=== PATIENT | female | born 1965 | race Caucasian/White ===

== ENCOUNTER 2022-04-17 18:48 | Emergency (ER) | payer OTHER ==
[2022-04-17 19:17] VITALS: BP 155/85; PULSE 76; O2SAT 98
--- NOTE | 2022-04-17 19:35 | ERPHSYRPT ---
- History of Present Illness Source: patient Exam Limitations: no limitations Patient Subjective Stated Complaint: C/O "infected left hip and left ear with my ear bleeding". Patient states that she had surgery to her left hip area around 7 weeks ago for a fractured femur head and that it is infected. States bleeding left ear and dizziness started a few days ago. Triage Nursing Assessment: Ambulated back to ED without difficulties. She is alert and oriented and answering questions appropriately. Left hip is hot to touch, hard induration noted. Incision is closed/well-approximated. Small amount of blood noted coming from left ear. Some swelling noted to neck distally to ear. Physician History: 56 yo from treatment center in [facility] for narcotic misuse presents w L otalgia and bleeding from L ear x2 days. Pt denies trauma and fever. States that she has some dizziness due to the otalgia. Pt also had a L hip fx repaired [address] [facility] s/p fall. She has been having some erythema and edema around the incision. Pt had a Rocephin injection 2 days ago and was placed on Bactrim. States that the edema and erythema are improving. Fever and discharge are denied at this time. Timing/Duration: other (2 days) Severity: mild Modifying Factors: Improves With: nothing Associated Symptoms: No nausea, No vomiting, No abdominal pain, No shortness of breath, No heartburn, No diaphoresis, No cough, No chills, No chest pain, No fever, No headaches, No loss of appetite, No malaise, No rash, No syncope, No seizure, No weakness Allergies/Adverse Reactions: No Known Drug Allergies Allergy (Verified 04/17/22 18:58) Hx Tetanus, Diphtheria Vaccination/Date Given: Yes Hx Influenza Vaccination/Date Given: Yes Hx Pneumococcal Vaccination/Date Given: Yes Immunizations Up to Date: Yes Travel Risk - International Travel Have you traveled outside of the country in past 3 weeks: No - Coronavirus Screening Are you exhibiting any of the following symptoms?: No Close contact with a COVID-19 positive Pt in past 14-21 Days: No - Vaccine Status Have you recieved a Covid-19 vaccination: Yes 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 - Vaccination Dates Date of 2cond Vaccination (if applicable): 2020 - Review of Systems Constitutional: No Symptoms Eyes: No Symptoms Ears, Nose, & Throat: No Symptoms Respiratory: No Symptoms Cardiac: No Symptoms Abdominal/Gastrointestinal: No Symptoms Genitourinary Symptoms: No Symptoms Musculoskeletal: No Symptoms Neurological: No Symptoms Psychological: No Symptoms Endocrine: No Symptoms Hematologic/Lymphatic: No Symptoms Immunological/Allergic: Pollen Allergy - Past Medical History Pertinent Past Medical History: Yes Cardiac History: Hypertension Musculoskeletal History: Fractures - Past Surgical History Past Surgical History: Yes Musculoskeletal: Orthopedic Surgery, Other Female Surgical History: Mastectomy Other Surgical History: Knee, Left femur fracture repair - Social History Smoking Status: Former smoker Exposure to second hand smoke: No Drug Use: none Patient Lives Alone: No Significant Family History: no pertinent family hx - Nursing Vital Signs Nursing Vital Signs: Initial Vital Signs Temperature 97.9 F 04/17/22 19:03 Pulse Rate 76 04/17/22 19:03 Respiratory Rate 17 04/17/22 19:03 Blood Pressure 155/85 04/17/22 19:03 O2 Sat by Pulse Oximetry 98 04/17/22 19:03 Pain Scale Pain Intensity 8 Hypertensive - Physical Exam General Appearance: no apparent distress Eye Exam: PERRL/EOMI Ears, Nose, Throat Exam: other (L otic canal w dried blood/TM intact and clear) Neck Exam: normal inspection, non-tender, supple, full range of motion, No meningismus, No mass, No Brudzinski, No Kernig's Respiratory Exam: normal breath sounds, lungs clear, airway intact Cardiovascular Exam: regular rate/rhythm, normal heart sounds, normal peripheral pulses, murmur (2/6 CAS) Gastrointestinal/Abdomen Exam: soft, normal bowel sounds, No tenderness Back Exam: normal inspection, normal range of motion, No CVA tenderness Extremity Exam: other (L hip incision/No dehiscence/mild erythema/Very mild edema around incision/No drainage) Neurologic Exam: alert, oriented x 3, cooperative, 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, normal mood/affect, nml cerebellar function, nml station & gait, sensation nml, No motor deficits, No sensory deficit Skin Exam: normal color, warm, dry Lymphatic Exam: No adenopathy SpO2 Interpretation: normal SpO2: 98 O2 Delivery: Room Air - Course Nursing assessment & vital signs reviewed: Yes Ordered Tests: Medication Summary Discontinued Medications Generic Name Dose Route Start Last Admin Trade Name Freq PRN Reason Stop Dose Admin Ceftriaxone Sodium 1,000 mg 04/17/22 19:39 04/17/22 19:43 Ceftriaxone Sodium 1000 Mg Inj Vial IM 04/17/22 19:40 1,000 mg STAT ONE Administration Ceftriaxone Sodium Confirm 04/17/22 19:41 Ceftriaxone Sodium 1000 Mg Inj Vial Administered 04/17/22 19:42 Dose 1,000 mg .ROUTE .STK-MED ONE - Progress Progress: improved Progress Note: 04/17/22 19:40 1gm IM Rocephin Counseled pt/family regarding: diagnosis, need for follow-up - Departure Departure Disposition: Home Clinical Impression: Trauma of ear canal, Alteration in skin integrity related to surgical incision Condition: Stable Critical Care Time: No Referrals: DOCTOR,NO FAMILY [Primary Care Provider] - Follow up/PCP as directed Instructions: Surgical Wound (DC) Additional Instructions: Floxin otic-10 drops left ear twice a day for 10 days Do not insert anything into ear Follow up w your family MD Continue with Bactrim twice a day Follow up with your surgeon in 1-2 days Return to ER as needed Prescriptions: Ofloxacin Otic 5 ml [Floxin Otic 5 ML] 10 drops OT BID 10 Days #5 ml
[2022-04-17] MEDS ORDERED: Rocephin 1000 MG INJ IM ONE (19:39)
[2022-04-17] MEDS ORDERED: Rocephin 1000 MG INJ ONE (19:41)
== END 2022-04-17 19:53 | disposition home or self-care (01) ==
LOC: ED 18:48
DX: S09.91XA Unspecified injury of ear, initial encounter (principal); T81.89XA Other complications of procedures, not elsewhere classified, initial encounter; R23.8 Other skin changes; H92.22 Otorrhagia, left ear; H92.02 Otalgia, left ear; I10 Essential (primary) hypertension
CPT/HCPCS: 96372; 99282; J0696

== ENCOUNTER 2022-04-24 13:27 | Emergency (ER) | payer OTHER ==
[2022-04-24 14:48] VITALS: BP 106/51; PULSE 60; O2SAT 96
--- NOTE | 2022-04-24 14:48 | ERPHSYRPT ---
- History of Present Illness Source: patient Exam Limitations: no limitations Patient Subjective Stated Complaint: Abscess to right elbow Triage Nursing Assessment: Patient ambulated back to ED and transferred self to bed. Patient A+O X 3. Patient's skin pink, warm and dry. Patient complains of right elbow pain for 3 days. Patient states she has a raised area to right elbow that has been there for 8 weeks, but she climbed a tree and scraped area on wood. Right elbow now is red, warm and swollen. Patient complains of pain 04/27. Patient states she has resistance to several atb. Physician History: 56 yo wf cc of R olecranon edema/erythema/pain after sliding down tree on 04/21/22 in which she knocked off a scab from previous scaffold fall 8-9 wks ago where she fractured her superior femur. Pt is on Bactrim now for possible incisional infection. Fever is denied. Occurred: other (04/21/22) Method of Injury: fell (Slid down tree) Quality: constant Severity of Pain-Max: moderate Severity of Pain-Current: moderate Extremities Pain Location: elbow: right Modifying Factors: Improves With: movement Associated Symptoms: none Allergies/Adverse Reactions: No Known Drug Allergies Allergy (Verified 04/24/22 13:54) Home Medications: No Reportable Medications [No Reported Medications] 04/24/22 [History] Hx Tetanus, Diphtheria Vaccination/Date Given: Yes Hx Influenza Vaccination/Date Given: Yes Hx Pneumococcal Vaccination/Date Given: Yes Immunizations Up to Date: Yes Travel Risk - International Travel Have you traveled outside of the country in past 3 weeks: No - Coronavirus Screening Are you exhibiting any of the following symptoms?: No Close contact with a COVID-19 positive Pt in past 14-21 Days: No - Vaccine Status Have you recieved a Covid-19 vaccination: Yes 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 - Vaccination Dates Date of 2cond Vaccination (if applicable): 2020 - Review of Systems Constitutional: No Symptoms Eyes: No Symptoms Ears, Nose, & Throat: No Symptoms Respiratory: No Symptoms Cardiac: No Symptoms Abdominal/Gastrointestinal: No Symptoms Genitourinary Symptoms: No Symptoms Musculoskeletal: No Symptoms, Arthralgias, Fall Skin: No Symptoms Neurological: No Symptoms Psychological: No Symptoms Endocrine: No Symptoms Hematologic/Lymphatic: No Symptoms Immunological/Allergic: No Symptoms - Past Medical History Pertinent Past Medical History: Yes Cardiac History: Hypertension Musculoskeletal History: Fractures - Past Surgical History Past Surgical History: Yes Musculoskeletal: Orthopedic Surgery, Other Female Surgical History: Mastectomy Other Surgical History: Knee, Left femur fracture repair - Social History Smoking Status: Former smoker Exposure to second hand smoke: No Drug Use: none Patient Lives Alone: No ([facility]) Significant Family History: no pertinent family hx - Nursing Vital Signs Nursing Vital Signs: Initial Vital Signs Temperature 97.3 F 04/24/22 13:55 Pulse Rate 65 04/24/22 13:55 Respiratory Rate 19 04/24/22 13:55 Blood Pressure 115/65 04/24/22 13:55 O2 Sat by Pulse Oximetry 96 04/24/22 13:55 Pain Scale Pain Intensity 7 WNL - Physical Exam General Appearance: no apparent distress Neck Exam: normal inspection, non-tender, supple, full range of motion, No Brudzinski, No Kernig's, No meningismus Cardiovascular/Respiratory Exam: normal breath sounds, regular rate/rhythm, hea rt sounds normal Abdominal Exam: non-tender, soft Shoulder Exam: normal inspection, non-tender Elbow/Forearm Exam: swelling (Edema and mild erythema just distal to olecranon/Mild TTP/good radial pulse, distal sensation, and capillary return) Hand Exam: normal inspection, non-tender DTR - Upper Extremity Exam: bicep (R): 2+, bicep (L): 2+ Neuro/Tendon Exam: normal sensation, normal motor functions, normal tendon functions, responds to pain, no evidence tendon injury, No motor deficit, No sensory deficit Mental Status Exam: alert, oriented x 3, cooperative Skin Exam: normal color SpO2 Interpretation: normal SpO2: 96 O2 Delivery: Room Air - Course Nursing assessment & vital signs reviewed: Yes - Radiology Exams Elbow X-ray Interpretation: Discussed w/ radiologist (R elbow Minimal posterior STS- edema/spurring/medial epicondyle ossification from trauma) - Radiology Ultrasound Exam Other Ultrasound: discussed w/radiologist (Rad agreed w tech), Other (No abscess per tech) Ordered Tests: Active Orders 24 hr Category Date Time Status ELBOW (MINIMUM 3 VIEWS) Stat Exams 04/24/22 15:03 Completed EXTREMITY NON VASCULAR [US] Stat Exams 04/24/22 15:47 Completed CBC W DIFF Stat Lab 04/24/22 15:25 Completed CMP Stat Lab 04/24/22 15:25 Completed Lactic Acid Stat Lab 04/24/22 14:41 Completed Medication Summary Discontinued Medications Generic Name Dose Route Start Last Admin Trade Name Adrianna PRN Reason Stop Dose Admin Ceftriaxone Sodium 1,000 mg 04/24/22 15:47 04/24/22 15:55 Ceftriaxone Sodium 1000 Mg Inj Vial IM 04/24/22 15:48 1,000 mg STAT ONE Administration Ceftriaxone Sodium Confirm 04/24/22 15:52 Ceftriaxone Sodium 1000 Mg Inj Vial Administered 04/24/22 15:53 Dose 1,000 mg .ROUTE .STK-MED ONE Lidocaine HCl Confirm 04/24/22 15:52 Lidocaine Hcl 1% 20 Ml Mdv 20 Ml Ml Administered 04/24/22 15:53 Dose 3 ml .ROUTE .STK-MED ONE Lab/Rad Data: Laboratory Result Diagrams 04/24/22 15:25 04/24/22 15:25 Laboratory Results 04/24/22 04/24/22 04/24/22 Range/Units 15:25 15:25 14:41 WBC 3.0 L (4.0-10.5) x10^3/uL RBC 4.30 (4.1-5.4) x10^6/uL Hgb 11.7 L (12.0-16.0) g/dL Hct 36.7 (35-47) % MCV 85.3 (78-100) fL MCH 27.2 (26-32) pg MCHC 31.9 L (32-36) g/dL RDW 13.3 (11.5-14.0) % Plt Count 154 (150-450) x10^3/uL MPV 9.7 (7.5-11.0) fL Gran % 52.2 (36.0-66.0) % Immature Gran % (Auto) 0.0 (0.00-0.4) % Nucleat RBC Rel Count 0.0 (0.00-0.1) % Eos # (Auto) 0.15 (0-0.5) x10^3/uL Immature Gran # (Auto) 0.00 (0.00-0.03) x10^3u/L Absolute Lymphs (auto) 1.03 (1.0-4.6) x10^3/uL Absolute Monos (auto) 0.22 (0.0-1.3) x10^3/uL Absolute Nucleated RBC 0.00 (0.00-0.01) x10^3u/L Lymphocytes % 34.9 (24.0-44.0) % Monocytes % 7.5 (0.0-12.0) % Eosinophils % 5.1 H (0.00-5.0) % Basophils % 0.3 (0.0-0.4) % Absolute Granulocytes 1.54 (1.4-6.9) x10^3/uL Basophils # 0.01 (0-0.4) x10^3/uL Sodium 135 L (137-145) mmol/L Potassium 4.4 (3.5-5.1) mmol/L Chloride 102 (98-107) mmol/L Carbon Dioxide 24 (22-30) mmol/L Anion Gap 13.1 (5-15) MEQ/L BUN 11 (7-17) mg/dL Creatinine 0.87 (0.52-1.04) mg/dL Estimated GFR > 60.0 ML/MIN Glucose 91 (74-106) mg/dL Lactic Acid 1.0 (0.4-2.0) Calcium 8.6 (8.4-10.2) mg/dL Total Bilirubin 0.40 (0.2-1.3) mg/dL AST 51 H (14-36) U/L ALT 36 H (0-35) U/L Alkaline Phosphatase 89 (38-126) U/L Serum Total Protein 7.5 (6.3-8.2) g/dL Albumin 3.8 (3.5-5.0) g/dL - Progress Progress Note: 04/24/22 15:47 1gm IM Rocephin Pt just started Bactrim DS yesterday, so will continue Counseled pt/family regarding: lab results, diagnosis, need for follow-up, rad results - Departure Departure Disposition: Home Clinical Impression: Cellulitis of right elbow Condition: Stable Critical Care Time: No Referrals: DOCTOR,NO FAMILY [Primary Care Provider] - Follow up/PCP as directed Instructions: MRSA (DC), Wound Infection Additional Instructions: Continue with Bactrim Follow up with your family MD Return to ER for increasing pain,swelling,redness, or temperature greater than 100.5
--- NOTE | 2022-04-24 15:14 | XRAY ---
Indication: Pain and edema following injury. Comparison: None 3 view left elbow demonstrates tiny spurring coronoid/olecranon processes. 6 mm well-circumscribed medial epicondyle heterotopic ossification presumed sequela old injury/inflammation. Minimal posterior soft tissue swelling/edema. No other bony, articular, or soft tissue abnormalities.
[2022-04-24 15:31] LABS: Absolute Neutrophil Ct (ANC) 1.54 x10^3/uL (1.4-6.9); Basophil (Absolute #) 0.01 x10^3/uL (0-0.4); Eosinophil % 5.1 % (0.00-5.0); Eosinophil (Absolute #) 0.15 x10^3/uL (0-0.5); Hematocrit 36.7 % (35-47); Hemoglobin 11.7 g/dL (12.0-16.0); Lymphocyte (Absolute #) 1.03 x10^3/uL (1.0-4.6); Lymphocytes % 34.9 % (24.0-44.0); Mean Cell Volume 85.3 fL (78-100); Mean Corpuscular Hemoglobin 27.2 pg (26-32); Mean Corpuscular Hgb Concent. 31.9 g/dL (32-36); Mean Platelet Volume 9.7 fL (7.5-11.0); Monocyte (Absolute #) 0.22 x10^3/uL (0.0-1.3); Monocytes % 7.5 % (0.0-12.0); Neutrophil % 52.2 % (36.0-66.0); Platelet Count 154 x10^3/uL (150-450); Red Cell Distribution Width 13.3 % (11.5-14.0)
[2022-04-24] MEDS ORDERED: Rocephin 1000 MG INJ IM ONE (15:47)
[2022-04-24] MEDS ORDERED: Rocephin 1000 MG INJ ONE (15:52)
[2022-04-24] MEDS ORDERED: XYLOCAINE 1% HCL 20 ML MDV ONE (15:52)
[2022-04-24 16:10] LABS: ALBUMIN 3.8 g/dL (3.5-5.0); ALKALINE PHOSPHATASE 89 U/L (38-126); ANION GAP 13.1 MEQ/L (5-15); BLOOD UREA NITROGEN 11 mg/dL (7-17); CHLORIDE 102 mmol/L (98-107); Calcium 8.6 mg/dL (8.4-10.2); Carbon Dioxide 24 mmol/L (22-30); Creatinine 1 0.87 mg/dL (0.52-1.04); EST GLOMERULAR FILTRATION RATE > 60.0 ML/MIN; Glucose 91 mg/dL (74-106); Potassium 4.4 mmol/L (3.5-5.1); SGOT/AST 51 U/L (14-36); SGPT/ALT 36 U/L (0-35); SODIUM 135 mmol/L (137-145); Total Protein 7.5 g/dL (6.3-8.2)
--- NOTE | 2022-04-24 16:27 | XRAY ---
Indication: Elbow edema/erythema following injury. Targeted soft tissue ultrasound right elbow is negative for focal solid/cystic soft tissue mass or abnormal fluid collection.
== END 2022-04-24 16:01 | disposition home or self-care (01) ==
LOC: ED 13:27
DX: L03.113 Cellulitis of right upper limb (principal); M25.521 Pain in right elbow; I10 Essential (primary) hypertension
CPT/HCPCS: 36415; 73080; 76881; 80053; 83605; 85025; 96372; 99283; J0696